=== PATIENT | female | born 1960 | race Asian ===

== ENCOUNTER 2018-06-02 11:26 | Emergency (ER) | payer OTHER ==
[~2018-06-02] VITALS: Wt 72.2 kg
[~2018-06-02 11:26] MED LIST: VITAMINS
[2018-06-02] MEDS ORDERED: ONDANSETRON 4 MG INJ IV STA (11:49)
[2018-06-02] MEDS ORDERED: ACETAMINOPHEN 325 MG TAB PO ONE (12:00)
[2018-06-02] MEDS ORDERED: HYDR25SU23 PR (13:00)
[2018-06-02] MEDS ORDERED: TRAM50TA2 PO (13:00)
[2018-06-02 13:25] VITALS: BP 152/70; PULSE 68; RESP 20
--- NOTE | 2018-06-02 14:25 | ERD ---
ER Documentation Chief Complaint Chief Complaint c/o rectal bleeding described as "black" HPI Patient is a 58-year-old female with no medical problems who presents with rectal bleed. She said that she had red stool at first and then tried an ointment but now her stools are black. She has left lower quadrant abdominal pain and left-sided flank pain. Her symptoms started 1 week ago. The pain was worse today. She has no fevers. She said that 3 years ago she had a colonoscopy which showed hemorrhoids. She is not taking blood thinning medications. Upon review of old medical records the patient one previous visit in 2016 for rectal bleed. She does have a primary doctor. ROS All systems reviewed and are negative except as per history of present illness. Medications Home Meds Active Scripts Hydrocortisone Acetate (Anusol-Hc) 25 Mg Supp.rect, 1 SUPP IN QHS PRN for H EMORROID PAIN/ITCHING, #12 SUPP.RECT Prov:KAY PANIAGUA MD 06/02/18 Tramadol HCl (Tramadol HCl) 50 Mg Tablet, 50 MG PO Q4 PRN for PAIN, #7 TAB Prov:KAY PANIAGUA MD 06/02/18 Discontinued Reported Medications [Vitamins] No Conflict Check 01/29/16 Allergies Allergies: Coded Allergies: No Known Allergy (Unverified , 06/02/18) PMhx/Soc History of Surgery: Yes (HYSTERECTOMY, THYROIDECTOMY) Anesthesia Reaction: No Hx Neurological Disorder: No Hx Respiratory Disorders: No Hx Cardiac Disorders: No Hx Psychiatric Problems: No Hx Miscellaneous Medical Probl: No Hx Alcohol Use: No Hx Substance Use: No Hx Tobacco Use: No Smoking Status: Never smoker FmHx Family History: No diabetes Physical Exam Vitals Vital Signs Date Temp Pulse Resp B/P (MAP) Pulse Ox O2 O2 Flow FiO2 Time Delivery Rate 06/02/18 98.3 68 20 152/70 100 13:25 (97) 06/02/18 97.9 73 20 172/88 100 11:28 (116) Physical Exam Const: No acute distress Head: Atraumatic Eyes: Normal Conjunctiva ENT: Normal External Ears, Nose and Mouth. Neck: Full range of motion. No meningismus. Resp: Clear to auscultation bilaterally Cardio: Regular rate and rhythm, no murmurs Abd: Soft, non tender, non distended. Normal bowel sounds Skin: No petechiae or rashes Back: No midline or flank tenderness Ext: No cyanosis, or edema Neur: Awake and alert Psych: Normal Mood and Affect Result Diagram: 06/02/18 1152 06/02/18 1152 Results 24 hrs Laboratory Tests Test 06/02/18 11:52 White Blood Count 6.5 10^3/ul Red Blood Count 4.58 10^6/ul Hemoglobin 14.0 g/dl Hematocrit 42.7 % Mean Corpuscular Volume 93.2 fl Mean Corpuscular Hemoglobin 30.6 pg Mean Corpuscular Hemoglobin Concent 32.8 g/dl Red Cell Distribution Width 12.7 % Platelet Count 249 10^3/UL Mean Platelet Volume 9.0 fl Immature Granulocytes % 0.200 % Neutrophils % 58.7 % Lymphocytes % 32.0 % Monocytes % 6.6 % Eosinophils % 2.0 % Basophils % 0.5 % Nucleated Red Blood Cells % 0.0 /100WBC Immature Granulocytes # 0.010 10^3/ul Neutrophils # 3.8 10^3/ul Lymphocytes # 2.1 10^3/ul Monocytes # 0.4 10^3/ul Eosinophils # 0.1 10^3/ul Basophils # 0.0 10^3/ul Nucleated Red Blood Cells # 0.0 10^3/ul Prothrombin Time 11.8 Sec Prothrombin Time Ratio 0.9 INR International Normalized Ratio 0.86 Activated Partial Thromboplast Time 30.8 Sec Sodium Level 142 mmol/L Potassium Level 3.9 mmol/L Chloride Level 103 mmol/L Carbon Dioxide Level 28 mmol/L Anion Gap 11 Blood Urea Nitrogen 16 mg/dl Creatinine 0.50 mg/dl Est Glomerular Filtrat Rate mL/min > 60 mL/min Glucose Level 90 mg/dl Calcium Level 9.8 mg/dl Total Bilirubin 0.5 mg/dl Direct Bilirubin 0.00 mg/dl Indirect Bilirubin 0.5 mg/dl Aspartate Amino Transf (AST/SGOT) 29 IU/L Alanine Aminotransferase (ALT/SGPT) 33 IU/L Alkaline Phosphatase 93 IU/L Troponin I < 0.012 ng/ml Total Protein 8.0 g/dl Albumin 4.8 g/dl Globulin 3.20 g/dl Albumin/Globulin Ratio 1.50 Current Medications Medications Dose Sig/Nasra Start Time Status Last (Trade) Ordered Route PRN Stop Time Admin Dose Reason Admin 650 mg ONCE ONCE 06/02/18 DC Acetaminophen PO 12:00 06/02/18 (Tylenol 12:01 Tab) Ondansetron 4 mg ONCE STAT 06/02/18 DC HCl (Zofran IV 11:49 06/02/18 Inj) 11:51 Procedures/MDM EKG read by me: Rate/Rhythm: Sinus bradycardia at a rate of 59 Intervals: Normal Impression: Sinus bradycardia without ischemia Patient is a 58-year-old female with no medical problems who presents with a rectal bleed. Blood tests are stable at this time. I believe her symptoms are likely related to hemorrhoid. The patient will be given a prescription for Anusol suppository. I do not believe she requires further workup or admission to the hospital at this time. The patient can return for any worsening symptoms. Departure Diagnosis: Primary Impression: Rectal hemorrhage Condition: Fair Patient Instructions: Rectal Bleed, Stable Referrals: Dr. Fernandes Additional Instructions: Call your primary care doctor TOMORROW for an appointment during the next 1-2 days.See the doctor sooner or return here if your condition worsens before your appointment time. KAY PANIAGUA MD Jun 02, 2018 14:25
== END 2018-06-02 13:26 | disposition home or self-care (01) ==
LOC: E/R 11:26
DX: K62.5 Hemorrhage of anus and rectum (principal); R10.32 Left lower quadrant pain
CPT/HCPCS: 36415; 74176; 80053; 84484; 85025; 85610; 85730; 86850; 86900; 86901; 93005; Z7502